=== PATIENT | male | born 1985 | race Asian ===

== ENCOUNTER 2020-08-17 14:39 | Emergency (ER) | payer SELFPAY ==
[~2020-08-17] VITALS: Ht 180.3 cm; Wt 70.3 kg
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
[2020-08-17] MEDS ORDERED: Tetanus/Diptheria/Pertussis IM ONE (15:45)
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
[2020-08-17] MEDS ORDERED: CEPHALEXIN500 MG ORAL (16:21)
[2020-08-17] MEDS ORDERED: BACITRACIN15 GM TOPIC (16:21)
[2020-08-17] MEDS ORDERED: Bacitracin Oint UD TOPIC ONE (16:30)
[2020-08-17 16:32] VITALS: BP 121/74
--- NOTE | 2020-08-17 16:32 | NUR ---
ED Nurse Note: Pt cleared by ERPA for discharge. DC instructions/prescription was given and explained to pt and verbalized understanding of teachings. All medical deviecs such as ID band removed. Pt is AAO x4, ambulatory and left with all personal belongings.
== END 2020-08-17 16:35 | disposition home or self-care (01) ==
LOC: EMR 15:30
DX: S91.311A Laceration without foreign body, right foot, initial encounter (principal); Z23 Encounter for immunization; V19.9XXA Pedal cyclist (driver) (passenger) injured in unspecified traffic accident, initial encounter; Y92.9 Unspecified place or not applicable
CPT/HCPCS: 90471; 90715; 99283